=== PATIENT | female | born 1975 | race African-American/Black ===

== ENCOUNTER 2016-05-17 20:17 | Emergency (ER) | payer OTHER ==
[~2016-05-17] VITALS: Ht 157.5 cm; Wt 70.3 kg
[~2016-05-17 20:17] MED LIST: HYDR30CR61 TP; WITC1MED18 TP
[2016-05-17 20:21] VITALS: BP 166/79
--- NOTE | 2016-05-17 20:55 | PHYS DOC ---
Past Medical History Past Medical History: No Pertinent History, Hypertension, Pneumonia Past Surgical History: Tubal ligation Alcohol Use: Heavy Drug Use: None Adult General Chief Complaint Chief Complaint: Congestion [facility] HPI Patient is a 40 year old female presents emergency room with complaint of right chest wall pain for greater than one week. Patient states that she's been having a cough since 15 April. She states that she was diagnosed with influenza 02 May. States she's been taking Tamiflu since that time. Patient states that she has been afebrile but continues to have a dry, hacking cough. She denies any fevers or chills. She denies any history of cardiopulmonary disease. She denies any history of rib fractures, pneumothorax, previous PEs/ DVTs or coagulopathies. Patient states that she saw her primary care doctor yesterday who prescribed her Levaquin. She says that this is day to take an open. Review of Systems Review of Systems Constitutional: Denies fever or chills [] Eyes: Denies change in visual acuity, redness, or eye pain [] HENT: Denies nasal congestion or sore throat [] Respiratory: Denies cough or shortness of breath [] Cardiovascular: No additional information not addressed in HPI [] GI: Denies abdominal pain, nausea, vomiting, bloody stools or diarrhea [] : Denies dysuria or hematuria [] Musculoskeletal: Denies back pain or joint pain [] Integument: Denies rash or skin lesions [] Neurologic: Denies headache, focal weakness or sensory changes [] Endocrine: Denies polyuria or polydipsia [] Allergies Allergies Allergies Coded Allergies Type Severity Reaction Last Updated Verified No Known Drug Allergies 12/27/14 No Physical Exam Physical Exam Constitutional: Well developed, well nourished, no acute distress, non-toxic appearance. Patient is neither tachycardic, tachypnea or hypoxic. HENT: Normocephalic, atraumatic, bilateral external ears normal, oropharynx moist, no oral exudates, nose normal. [] Eyes: PERRLA, EOMI, conjunctiva normal, no discharge. [] Neck: Normal range of motion, no tenderness, supple, no stridor. [] Cardiovascular:Heart rate regular rhythm, no murmur [] Lungs & Thorax: Patient has tenderness to palpation of the right anterior chest wall underneath her breast tissue. There is no palpable defect, deformity, instability or crepitus. Patient reports that she has increased pain with deep inspiration. Abdomen: Bowel sounds normal, soft, no tenderness, no masses, no pulsatile masses. [] Skin: Warm, dry, no erythema, no rash. [] Back: No tenderness, no CVA tenderness. [] Extremities: No tenderness, no cyanosis, no clubbing, ROM intact, no edema. [] Neurologic: Alert and oriented X 3, normal motor function, normal sensory function, no focal deficits noted. [] Psychologic: Affect normal, judgement normal, mood normal. [] Current Patient Data Vital Signs Vital Signs Date Time Temp Pulse Resp B/P Pulse Ox O2 Delivery O2 Flow Rate FiO2 05/17/16 20:21 98.3 99 20 99 Room Air 98.3 EKG EKG [] Radiology/Procedures Radiology/Procedures PA and lateral chest x-ray are performed with adequate technique. There appears to be a lingular infiltrate. Course & Med Decision Making Course & Med Decision Making Pertinent Labs and Imaging studies reviewed. (See chart for details) [] Dragon Disclaimer Dragon Disclaimer This electronic medical record was generated, in whole or in part, using a voice recognition dictation system. Departure Departure Impression: Primary Impression: Lingular pneumonia Disposition: HOME, SELF-CARE Condition: GOOD Referrals: GABRIEL JENSEN (PCP) Patient Instructions: Pneumonia, Adult, [id number] Additional Instructions: 1. Continue taking the Levaquin as prescribed. 2. Take the medication prescribed to help suppress your cough and take care of chest wall pain. 3. Review the discharge instructions provided for self-care and reasons to return to the emergency department. 4. Contact your primary care doctor in the morning to schedule follow-up appointment for reevaluation by early next week. Scripts Albuterol Sulfate (Proair Hfa Inhaler)8.5 Gm [id number] Puff INH PRN Q6HRS PRN shortness of breath and cough #1 INHALER Ref 0 Prov:IGGY GASPAR 05/17/16 Hydrocodone/Chlorphen Polis (Tussionex Pennkinetic Susp)480 Ml [id number] Ml PO BID #120 ML Prov:IGGY GASPAR 05/17/16 IGGY GASPAR May 17, 2016 20:55
[2016-05-17] MEDS ORDERED: HYDR115S2 PO (21:33)
[2016-05-17] MEDS ORDERED: PROAIR HFA8.5 GM INH (21:33)
--- NOTE | 2016-05-18 08:22 | RAD ---
Chest, 2 views, 05/17/2016: History: Cough, chest pain The heart size and pulmonary vascularity are normal. No pulmonary infiltrates are seen. There is no evidence of pleural fluid. IMPRESSION: No acute cardiopulmonary abnormality is detected.
== END 2016-05-17 21:37 | disposition home or self-care (01) ==
LOC: ER 20:17
DX: J18.8 Other pneumonia, unspecified organism (principal); I10 Essential (primary) hypertension; Z98.51 Tubal ligation status
CPT/HCPCS: 71020; 99284-25